=== PATIENT | male | born 1995 | race Caucasian/White ===

== ENCOUNTER 2018-05-18 05:12 | Emergency (ER) | payer OTHER ==
[~2018-05-18] VITALS: Ht 180.3 cm; Wt 63.6 kg
[2018-05-18] MEDS ORDERED: ACETAMINOPHEN 500 MG TABLET PO ONE (07:00)
[2018-05-18] MEDS ORDERED: BACITRACIN 0.9 GM PACKET OINTMENT TP ONE (07:00)
[2018-05-18] MEDS ORDERED: KETOROLAC TROMETHAMINE 30 MG/ML VIAL IVP ONE (07:00)
[2018-05-18] MEDS ORDERED: BUPIVACAINE HCL/PF 0.25% 10 ML VIAL INJ ONE (07:00)
[2018-05-18 08:54] VITALS: BP 96/55
== END 2018-05-18 09:15 | disposition home or self-care (01) ==
LOC: EMS 05:13
DX: S01.111A Laceration without foreign body of right eyelid and periocular area, initial encounter (principal); S81.811A Laceration without foreign body, right lower leg, initial encounter; S06.0X0A Concussion without loss of consciousness, initial encounter; F10.129 Alcohol abuse with intoxication, unspecified; F12.90 Cannabis use, unspecified, uncomplicated; F17.210 Nicotine dependence, cigarettes, uncomplicated; Y90.7 Blood alcohol level of 200-239 mg/100 ml; V43.52XA Car driver injured in collision with other type car in traffic accident, initial encounter; Y93.89 Activity, other specified; Y92.89 Other specified places as the place of occurrence of the external cause; Y99.8 Other external cause status
CPT/HCPCS: 12002; 12013; 36415; 70160; 70450; 72125; 73590; 96374; 99285; G0480; J1885; J3490

== ENCOUNTER 2019-01-12 22:51 | Emergency (ER) | payer SELFPAY ==
[~2019-01-12] VITALS: Ht 180.3 cm; Wt 59.1 kg
[2019-01-13] MEDS ORDERED: DOXYCYCLINE HYCLATE 100 MG CAPSULE PO ONE (02:45)
[2019-01-13] MEDS ORDERED: CEPHALEXIN MONOHYDRATE 500 MG CAPSULE PO ONE (02:45)
[2019-01-13 03:02] VITALS: BP 108/68
== END 2019-01-13 03:00 | disposition home or self-care (01) ==
LOC: EMS 22:53
DX: L02.415 Cutaneous abscess of right lower limb (principal); F17.210 Nicotine dependence, cigarettes, uncomplicated; Z48.02 Encounter for removal of sutures

== ENCOUNTER 2019-03-09 21:20 | Emergency (ER) | payer SELFPAY ==
[~2019-03-09] VITALS: Ht 180.3 cm; Wt 60.1 kg
[2019-03-09] MEDS ORDERED: LIDOCAINE 1% 10 ML VIAL ONE (21:31)
[2019-03-09] MEDS ORDERED: POVIDONE-IODINE 10% 120 ML SOLUTION TP ONE ×2 (21:34)
[2019-03-09] MEDS ORDERED: SODIUM CHLORIDE 0.9% 2,000 ML IV ONE ×2 (21:49→22:00)
[2019-03-09] MEDS ORDERED: PERTUSS(ACELL),DIPH,TET VAC/PF 0.5 ML VIAL IM ONE (22:00)
[2019-03-09] MEDS ORDERED: CeFAZolin 2 GM/DEXTROSE 50 ML IV ONE ×2 (22:00)
[2019-03-09] MEDS ORDERED: TETANUS/DIPHTHERIA TOXOID [ADULT] 0.5 ML VIAL IM ONE (22:00)
[2019-03-09 22:06] VITALS: BP 128/94
[2019-03-09 22:22] LABS: ALANINE AMINOTRANSFERASE 16 U/L (12-78); ALBUMIN 3.8 g/dL (3.4-5.0); ALKALINE PHOSPHATASE 65 U/L (46-116); ANION GAP 11 mmol/L (8-16); ASPARTATE AMINOTRANSFERASE 17 U/L (15-37); BILIRUBIN,TOTAL 1.4 mg/dL (0.1-1.0); CALCIUM, TOTAL 8.9 mg/dL (8.8-10.5); CARBON DIOXIDE 25 mmol/L (22-29); CHLORIDE 99 mmol/L (98-107); CREATININE 1.01 mg/dL (0.60-1.30); GLOMERULAR FILTR. RATE CALC > 60 mL/min (>60); GLUCOSE,RANDOM 120 mg/dL (70-110); SODIUM SERUM 135 mmol/L (136-145); TOTAL PROTEIN, SERUM 6.9 g/dL (6.4-8.2); UREA NITROGEN, BLOOD 14 mg/dL (7-18)
[2019-03-09 22:24] LABS: BASOPHILS % (AUTO) 0.4 % (0.0-2.0); EOSINOPHILS % (AUTO) 1.4 % (1.0-6.0); HEMATOCRIT 39.1 % (41-53); HEMOGLOBIN 12.8 g/dL (13.5-17.5); LYMPHOCYTES # (AUTO) 3.3 K/uL (1.0-4.8); LYMPHOCYTES % (AUTO) 29.5 % (22.0-44.0); MEAN CORPUSCULAR HEMOGLOBIN 32.7 pg (26.0-34.0); MEAN CORPUSCULAR HGB CONC 32.8 G/dL (31.0-37.0); MEAN CORPUSCULAR VOLUME 100 fL (80-100); MONOCYTES # (AUTO) 1.3 K/uL (0.1-1.0); MONOCYTES % (AUTO) 11.1 % (2.0-9.0); NEUTROPHILS # (AUTO) 6.5 K/uL (1.8-7.7); NEUTROPHILS % (AUTO) 57.6 % (40.0-70.0); PLATELET COUNT (AUTO) 203 K/uL (150-450); RED BLOOD CELL COUNT(AUTO) 3.93 MIL/uL (4.50-5.90); RED CELL DISTRIBUTION WIDTH 13.5 % (11.5-14.5)
[2019-03-09 22:26] LABS: POTASSIUM 2.6 mmol/L (3.5-5.1)
== END 2019-03-09 22:03 | disposition short-term general hospital (02) ==
LOC: EMS 21:20
DX: S27.1XXA Traumatic hemothorax, initial encounter (principal); S21.112A Laceration without foreign body of left front wall of thorax without penetration into thoracic cavity, initial encounter; S31.119A Laceration without foreign body of abdominal wall, unspecified quadrant without penetration into peritoneal cavity, initial encounter; S41.112A Laceration without foreign body of left upper arm, initial encounter; F17.210 Nicotine dependence, cigarettes, uncomplicated; E87.6 Hypokalemia; X99.8XXA Assault by other sharp object, initial encounter; Y93.89 Activity, other specified; Y92.89 Other specified places as the place of occurrence of the external cause; Y99.8 Other external cause status
CPT/HCPCS: 32551; 36415; 71045; 80053; 85025; 86850; 86900; 86901; 90471; 90715; 99291; J0690; J3490; J7030; 90714

== ENCOUNTER 2025-06-18 13:42 | Emergency (ER) | payer MEDICAID ==
[~2025-06-18] VITALS: Ht 180.3 cm; Wt 77.3 kg
[2025-06-18 14:12] VITALS: TEMP 98.1
[2025-06-18 15:30] VITALS: BP 118/1; PULSE 77; RESP 18; O2SAT 99
[2025-06-18] MEDS: AZITHROMYCIN 500 MG TABLET PO ONE (15:55)
[2025-06-18] MEDS: CefTRIAXone SODIUM 1 GM/VIAL IM ONE (15:55)
[2025-06-18] MEDS: LIDOCAINE/PF 1% 2 ML VIAL IM ONE (15:55)
== END 2025-06-18 16:17 | disposition home or self-care (01) ==
LOC: EMS 13:42
DX: L24.9 Irritant contact dermatitis, unspecified cause (principal); F17.210 Nicotine dependence, cigarettes, uncomplicated
CPT/HCPCS: 99283; 96372; J0456; J0696; J3490